=== PATIENT | female | born 1945 | race African-American/Black ===

== ENCOUNTER 2016-12-01 12:29 | Emergency (ER) | payer MEDICARE, OTHER ==
[~2016-12-01] VITALS: Ht 162.6 cm; Wt 111.1 kg
[~2016-12-01 12:29] MED LIST: ADVAIR 100-501 EACH INH; ASPIRIN EC81 MG ORAL; AUGMENTIN 875-1 EAC1 ORAL; BENAZEPRIL HCL10 MG ORAL; DITROPAN XL5 MG PO; METFORMIN HCL500 M1 ORAL; SYNTHROID75 MCG PO
--- NOTE | 2016-12-01 13:13 | Emergency Room Report ---
History of Present Illness General Chief Complaint: General Complaint Present Illness HPI 71-year-old female presents to the emergency department complaining of ring stuck on her right ring finger times one day. Patient denies erythema of reports some mild swelling at her knuckle which is making it difficult to remove her ring. Patient denies numbness skin color changes or severe pain. Patient denies past medical history denies trauma. Denies numbness tingling or loss of sensation or gross motor movements of the extremities, Denies CP, Palpitations, LOC, AMS, dizziness, Changes in Vision, Sensation, paresthesias, or a sudden severe headache. (Micheline Colon P.A.) Allergies: Coded Allergies: No Known Allergies (Unverified , 04/06/12) Patient History Past Medical History: see triage record Past Surgical History: none Pertinent Family History: none Now: No Immunizations: UTD Reviewed Nursing Documentation: PMH: Agreed, PSxH: Agreed (Micheline Colon P.Shivam) Nursing Documentation-PMH Hx Asthma: Yes - ADVAIR INHALER Hx COPD: Yes Hx Diabetes: Yes Hx Cancer: No Hx Gastrointestinal Problems: No Hx Neurological Problems: Yes (Micheline Colon P.A.) Review of Systems All Other Systems: negative except mentioned in HPI (Micheline Colon P.A.) Physical Exam Vital Signs Date Time Temp Pulse Resp B/P (MAP) Pulse Ox O2 Delivery O2 Flow Rate FiO2 12/01/16 12:47 97.7 77 18 137/67 95 Room Air Sp02 EP Interpretation: reviewed, normal General Appearance: no apparent distress, alert, GCS 15, non-toxic Head: normocephalic, atraumatic Eyes: bilateral eye normal inspection, bilateral eye PERRL ENT: hearing grossly normal, normal voice Neck: full range of motion Respiratory: lungs clear, normal breath sounds, speaking full sentences Cardiovascular #1: regular rate, rhythm, normal capillary refill Musculoskeletal: back normal, gait/station normal, normal range of motion, non- tender, swelling - PIP joint of the right ring finger. no erythema, normal color. Neurologic: alert, oriented x3, responsive, motor strength/tone normal, sensory intact, speech normal Psychiatric: judgement/insight normal, memory normal, mood/affect normal Skin: normal color, no rash, warm/dry, well hydrated (Micheline Colon) Procedures Additional Procedure Procedure Narrative Ring Removal: Verbal consent was obtained by pt. to use ring cutter to remove ring from the right 4th digit. single attempt to remove the right using a ring cutting tool was successful, pt. tolerate well there were no complications. (Micheline Colon) Medical Decision Making PA Attestation Dr. ring is my supervising Physician whom patient management has been discussed with. (Micheline Colon) Medicare Attestation The history of Katharina Islas has been reviewed and management options for her have been examined and discussed by Wolf Garcia. I have personally examined and interviewed the patient. (WOLF GARCIA M.D.) Diagnostic Impression: Primary Impression: Constrictive jewelry of finger Qualified Codes: S60.449A - External constriction of unspecified finger, initial encounter; W49.04XA - Ring or other jewelry causing external constriction, initial encounter ER Course 71-year-old female presents to the emergency department complaining of ring stuck on her right ring finger times one day. Patient denies erythema of reports some mild swelling at her knuckle which is making it difficult to remove her ring. Patient denies numbness skin color changes or severe pain. Patient denies past medical history denies trauma. Denies numbness tingling or loss of sensation or gross motor movements of the extremities, Denies CP, Palpitations, LOC, AMS, dizziness, Changes in Vision, Sensation, paresthesias, or a sudden severe headache. Ddx considered but are not limited to constriction/circulatory compromise, compartment syndrome, necrosis, cellulitis just to name a few Vital signs: are WNL, pt. is afebrile H&PE are most consistent with non complicated constricted jewelry on right ring finger not compromising circulation at this time. ORDERS: none required at this time, the diagnosis is clinical ED INTERVENTIONS: -Ice Pack was applied. Ring Removal: Verbal consent was obtained by pt. to use ring cutter to remove ring from the right 4th digit. single attempt to remove the right using a ring cutting tool was successful, pt. tolerate well there were no complications. pt. remains NVI DISCHARGE: At this time pt. is stable for d/c to home. Will provide printed patient care instructions, and any necessary prescriptions. Care plan and follow up instructions have been discussed with the patient prior to discharge. (Micheline Colon) Last Vital Signs Date Time Temp Pulse Resp B/P (MAP) Pulse Ox O2 Delivery O2 Flow Rate FiO2 12/01/16 12:47 97.7 77 18 137/67 95 Room Air (Micheline Colon) Disposition: HOME, SELF-CARE Condition: Stable Scripts Ibuprofen* (MOTRIN*) 400 Mg Tablet 400 MG ORAL THREE TIMES A DAY, #30 TAB 0 Refills Prov: Micheline Colon 12/01/16 Patient Instructions: Medical Screening Exam Additional Instructions: Take medications as directed. Follow up with a Primary Care Provider in 3-5 days, even if your symptoms have resolved. --Please review list of primary care clinics, if you do not already have a primary care provider Return sooner to ED if new symptoms occur, or current symptoms become worse. - Please note that this Emergency Department Report was dictated using [employer] youth supervisor technology software, occasionally this can lead to erroneous entry secondary to interpretation by the dictation equipment. Micheline Colon Dec 01, 2016 13:13 WOLF GARCIA M.D. Dec 02, 2016 15:45
[2016-12-01] MEDS ORDERED: IBUPROFEN400 MG ORAL (13:19)
[2016-12-01 13:58] VITALS: BP 137/67
== END 2016-12-01 14:26 | disposition home or self-care (01) ==
LOC: EMR 13:23
DX: S60.444A External constriction of right ring finger, initial encounter (principal); W49.04XA Ring or other jewelry causing external constriction, initial encounter; Y93.9 Activity, unspecified; Y99.9 Unspecified external cause status; J44.9 Chronic obstructive pulmonary disease, unspecified; E11.9 Type 2 diabetes mellitus without complications; Z86.69 Personal history of other diseases of the nervous system and sense organs
CPT/HCPCS: 99283

== ENCOUNTER 2018-09-04 05:42 | Inpatient (IN) | payer MEDICARE, BC ==
[2018-09-04] VITALS (13 sets, daily range): BP systolic 112–166; BP diastolic 70–91
[~2018-09-04] VITALS: Ht 162.6 cm; Wt 110.7 kg
[~2018-09-04 05:42] MED LIST changes: +IBUPROFEN400 MG ORAL; +MOBIC15 MG ORAL; +PRILOSEC OTC20 MG ORAL; +TOVIAZ8 MG PO
[2018-09-04] MEDS ORDERED: ceFAZolin 1gm IVPB IVPB ONE ×2 (06:00)
[2018-09-04] MEDS ORDERED: celeBREX 200mg Cap **SURGERY PATIENTS ONLY ORAL ONE (06:00)
[2018-09-04] MEDS ORDERED: oxyCONTIN 20mg tab ORAL ONE (06:00)
--- NOTE | 2018-09-04 07:00 | Pre-Procedure Note/Attestation ---
Pre-Procedure Note/Attestation Complete Prior to Procedure Planned Procedure: left Procedure Narrative: left total knee arthroplasty Indications for Procedure Pre-Operative Diagnosis: left knee arthritis Attestation I attest that I discussed the nature of the procedure; its benefits; risks and complications; and alternatives (and the risks and benefits of such alternatives ), prior to the procedure, with the patient (or the patient's legal customer relations representative). I attest that, if there was a reasonable possibility of needing a blood transfusion, the patient (or the patient's legal customer relations representative) was given the [facility] standardized written summary, pursuant to the Aidan Stanley Blood Safety Act ([place] Health and Safety Code # 1645, as amended). I attest that I re-evaluated the patient just prior to the surgery and that there has been no change in the patient's H&P, except as documented below: none Erickson Tabor MD Sep 04, 2018 07:00
[2018-09-04] MEDS ORDERED: Ropivacaine 5mg/ml Vial 30ml INJ ONE ×2 (07:11→07:52)
[2018-09-04] MEDS ORDERED: VITAMIN D400 INTLU ORAL (07:11)
[2018-09-04] MEDS ORDERED: NeoSporin Gu Irrig 1ml Amp IRRIG ONE ×3 (07:12→09:40)
[2018-09-04] MEDS ORDERED: NORCO 5-325 TA1 EACH ORAL (07:12)
[2018-09-04] MEDS ORDERED: TRULICITY1.5 MG/0.5 SQ (07:12)
[2018-09-04] MEDS ORDERED: Bacitracin 50000 Units Vial ONE (07:12)
[2018-09-04] MEDS ORDERED: HYDROmorphone 1mg/ml Carpuject SUBQ PRN (07:15)
[2018-09-04] MEDS ORDERED: Tranexamic Acid 1,000 MG in NS 55 ML IV ONE (07:15)
[2018-09-04] MEDS ORDERED: Milk of Magnesia 30ml Ud ORAL PRN (07:15)
[2018-09-04] MEDS ORDERED: Lidocaine 1% MPF 10mg/ml 5ml ONE (07:52)
[2018-09-04] MEDS ORDERED: Propofol 200mg/20ml IV ONE (07:55)
[2018-09-04] MEDS ORDERED: fentaNYL 100 mcg/2 mL IV ONE (07:58)
[2018-09-04] MEDS ORDERED: Midazolam 2mg/2ml Inj ONE (07:58)
[2018-09-04] MEDS ORDERED: Sterile Water Irrig 1000ml IRRIG ONE (08:30)
[2018-09-04] MEDS ORDERED: LR 1000ml ONE (08:30)
[2018-09-04] MEDS ORDERED: NS Irrig 2000ml IRRIG ONE ×3 (08:30→09:42)
[2018-09-04] MEDS ORDERED: Bacitracin 50000 Units Vial IRRIG ONE ×2 (09:00→09:40)
[2018-09-04] MEDS ORDERED: ePHEDrine 50mg/ml Inj ONE (09:33)
[2018-09-04] MEDS ORDERED: Sodium Chloride 10ml vial INJ ONE (09:34)
[2018-09-04] MEDS ORDERED: LR 1000ml 1,000 ML IVLG SCH (09:48)
--- NOTE | 2018-09-04 09:48 | Anethesia Preoperative Eval ---
Anesthesia Pre-op PMH/ROS General Date of Evaluation: Sep 04, 2018 Time of Evaluation: 08:05 Anesthesiologist: Rhodna ASA Score: ASA 3 Mallampati Score Class I : Soft palate, uvula, fauces, pillars visible Class II: Soft palate, uvula, fauces visible Class III: Soft palate, base of uvula visible Class IV: Only hard plate visible Mallampati Classification: Class II Surgeon: Sharona Diagnosis: L knee DJD Surgical Procedure: L knee TNA Anesthesia History: none Family History: no anesthesia problems Allergies: Coded Allergies: No Known Allergies (Unverified , 09/04/18) Medications: see eMAR Patient NPO?: Yes NPO Date: Sep 03, 2018 NPO Time: 2339 Past Medical History Cardiovascular: Reports: HTN; Denies: CAD, TN, valve dz, arrhythmia, other Pulmonary: Reports: asthma - mild occasional inhaler, LYNDSAY; Denies: COPD, other Gastrointestinal/Genitourinary: Reports: GERD; Denies: CRI, ESRD, other Neurologic/Psychiatric: Reports: other - chronic pain; Denies: dementia, CVA, depression/anxiety, TIA Endocrine: Reports: DM - stable on pills, hypothyroidism; Denies: steroids, other HEENT: Reports: cataract (L), cataract (R) - s/p Sx Hematology/Immune: Reports: anemia - mild; Denies: DVT, bleeding disorder, other Musculoskeletal/Integumentary: Reports: DJD; Denies: OA, RA, DDD, edema, other Other: obesity - morbid obesity PMH Narrative: as above PSxH Narrative: T&A, cholecystectomy, bilateral cataracts and corneal transplant, Knee arthroscopy Anesthesia Pre-op Phys. Exam Physician Exam Last Vital Signs Date Time Temp Pulse Resp B/P (MAP) Pulse Ox O2 Delivery O2 Flow Rate FiO2 09/04/18 07:12 Room Air 09/04/18 07:08 97.8 73 18 131/74 (93) 97 Constitutional: NAD Neurologic: CN 2-12 intact Cardiovascular: RRR, no M/R/G Respiratory: CTA Gastrointestinal: other - obesity Airway Exam Mallampati Score: Class II MO: full Neck: stiff ROM: limited Teeth: intact Dentures: no upper, no lower Anesthesia Pre-op A/P Labs see chart Studies Pre-op Studies: EKG - NSR Risk Assessment & Plan Assessment: ASA 3 Plan: SAB vs GA L femoral nerve block for postop pain control Status Change Before Surgery: No Pre-Antibiotics Drug: Ancef 2gr. Trans examic acid !gr surgeon equest Given Within 1 Hr of Incision: Yes Time Given: 09:20 Giovany Ellis MD Sep 04, 2018 09:48
[2018-09-04] MEDS ORDERED: DiphenhydrAMINE 50mg/ml Inj IVP PRN (10:00)
[2018-09-04] MEDS ORDERED: Hydromorphone 0.5mg/0.5ml inj IVP PRN (10:00)
--- NOTE | 2018-09-04 11:10 | Brief Operative Note ---
Immediate Post Operative Note Operative Note Chief Complaint: left knee pain Pre-op Diagnosis: left knee arthritis Procedure: left total knee arthroplasty Post-op Diagnosis: same as pre-op Findings: consistent w/pre-op dx studies Surgeon: md yelitza Broadcast Chief Engineer: jonelle berman Anesthesiologist: md fernando Anesthesia: general Specimen: yes Complications: none Condition: stable Fluids: ns Estimated Blood Loss: minimal Drains: none Implant(s) used?: Yes - Marquita Monroe Sep 04, 2018 11:10
--- NOTE | 2018-09-04 11:30 | Immediate Post-Op Evaluation ---
Immediate Post-Op Evalulation Immediate Post-Op Evalulation Procedure: L total knee arthroplasty Date of Evaluation: Sep 04, 2018 Time of Evaluation: 11:29 IV Fluids: 1500 Blood Products: none Estimated Blood Loss: 150 Urinary Output: 250 Blood Pressure Systolic: 144 Blood Pressure Diastolic: 76 Pulse Rate: 76 Respiratory Rate: 20 O2 Sat by Pulse Oximetry: 98 Temperature (Fahrenheit): 97.6 Pain Score (1-10): 1 Nausea: No Vomiting: No Complications none Patient Status: awake, patent, none Hydration Status: adequate Giovany Ellis MD Sep 04, 2018 11:30
--- NOTE | 2018-09-04 11:55 | NUR ---
TOLD ME ASPER TO REMOVE THE FC BEFORE TAKING THE PATIENT TO THE ROOM.
--- NOTE | 2018-09-04 12:45 | NUR ---
NURSE NOTES:RECEIVED FR.PACU BY DIANA S/P NAYA UNDER GENERAL/SPINAL ANESTHESIA.PATIENT AWAKE,A/OX4,WITH 2LITERS N/C,WTIH SENSATION ON BLE.CLAIMS "DAGMAR STARTING TO HAVE FEELINGS ON THE THIGH ALREADY"CAN WIGGLE TOES,SCD ON TO RIGHT LEG,SURGICAL DRSNG/KNEE IMMOBILIZER,ICE PACK TO LEFT KNEE.PLAN OF CARE DISCUSSED AND UNDERSTOOD,FAMILY AT BEDSIDE FOR SUPPORTIVE CARE.REPORT GIVEN BY PASTOR (DUST COLLECTOR ORE CRUSHING) Addendum: 09/04/18 at 1326 by DIMA WILSON RN NURSE NOTES: C/O POST OP PAIN 07/11,MEDICATED BY ANISH Lea
[2018-09-04] MEDS: Docusate 100mg cap ORAL SCH ×2 (13:00→17:45)
--- NOTE | 2018-09-04 13:16 | NUR ---
NURSE NOTES:SPOKE WITH RE:PATIENT H/O MRSA NARES,AND POSSIBILITY TO TRANSFER PATIENT TO 4TH FLOOR.MD DECLINED AND STATED TO KEEP PATIENT IN 3 EAST.CHARGE NURSE(ANISH Mathews)INFORMED.
[2018-09-04] MEDS ORDERED: D5 1/2NS w/KCl 20mEq 1,000 ML IV SCH (14:00)
--- NOTE | 2018-09-04 14:00 | NUR ---
PT EVALUATION NOTE Patient seen for initial evaluation, see complete evaluation for details. Patient presents with pain and limited mobility following L TKA. Patient will benefit from skilled inpatient PT intervention to address strength, balance, safety and functional mobility. Recommend discharge to ARU vs SNF for further rehab once medically cleared by MD. DME needs to be determined based on discharge disposition and patient progress. Addendum: 09/04/18 at 1508 by JESSICA NIEVES PT Amended: Links added.
--- NOTE | 2018-09-04 14:00 | NUR ---
NURSE NOTES:ACTIVITY WITH PT,PATIENT STAND AT THE SIDE OF BED,AND HAD CPM STARTED,PATIENT STILL IN A LOT OF PAIN,MEDICATED BY FOREIGN CONTRERAS. WITH ADDIS,WILL MONITOR.
[2018-09-04] MEDS: HYDROcodone/Acetamin 5/325 tab ORAL PRN (14:08)
--- NOTE | 2018-09-04 14:52 | NUR ---
NURSE NOTES:PATIENT TOLERATED FOR JUST 30-45 MINUTES OF CPM.ROLLED TOWEL PLACED UNDER CALF,ICE PACK ON.WILL CONTINUE TO MONITOR.
--- NOTE | 2018-09-04 15:59 | NUR ---
NURSE NOTES:DR. FRIAS NOTIFIED RE:PATIENT NEEDS STRONGER PAIN MED.ORDERS CARRIED OUT.
--- NOTE | 2018-09-04 16:13 | Diagnostic Imaging Report ---
Indications: Postoperative Technique: Two views of the knee Comparison: None Findings: Two postoperative views of the left knee demonstrate total knee arthroplasty, good anatomic alignment of the prosthesis. There is postsurgical soft tissue air. Overlying skin kalpana. Impression: Postoperative left knee, no unusual features.
[2018-09-04] MEDS: NovoLOG Insulin Flexpen SUBQ SCH ×2 (17:30→20:15)
--- NOTE | 2018-09-04 17:30 | Operative Note - Dictated ---
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 PROCEDURE: Left total knee arthroplasty using Omid Triathlon System, size 4 femur, size 4 tibia, 31 mm ultra cross-link all-poly patella and 9 mm ultra cross-link polyethylene insert, all cemented. SURGEON: Erickson Tabor M.D. CLINICAL REVIEW SPECIALIST: Marquita Ware PA-C. ANESTHESIOLOGIST: Giovany Ellis M.D. ANESTHESIA: Spinal anesthesia combined with LMA anesthesia in block. ESTIMATED BLOOD LOSS: Less than 20 mL. COMPLICATIONS: None. TOURNIQUET TIME: 70 minutes. BRIEF HISTORY: The patient is a very pleasant 73-year-old female who has been dealing with severe left knee pain and valgus deformity. She also had a lot of wear medially. After full discussion of risks and benefits of surgery and after she failed nonoperative treatment, she opted for surgical treatment as described above. OPERATIVE PROCEDURE: The patient was brought to the operating table and was placed supine. All pressure points were well padded. Spinal anesthesia was induced and the left knee was prepped and draped in usual sterile fashion. The block was performed by anesthesiologist and the patient was given an LMA. Tranexamic acid and preop antibiotics were given and a time-out was performed. The left leg was prepped and draped in usual sterile fashion. The left leg was exsanguinated. Tourniquet was inflated to 275 mmHg. Standard anterior portion of the knee was undertaken and incision was taken through subcutaneous tissue. Medial parapatellar arthrotomy was performed and the patella was everted. Deep fibers of the MCL were resected. The medial and lateral meniscus as well as ACL and PCL were resected. At this point, intramedullary access into the femur was obtained using drill hole. Subsequently, intramedullary guide was placed in and the distal femoral guide was used in 5 degrees of valgus to do a distal femoral cut. Once this was completed, the measuring device was applied to the femur and size 4 appeared to be the right size. The transcondylar axis of the femur was identified and size 4 cutting guide was placed in 3 degrees of external rotation from the transepicondylar axis. Anterior, posterior, and chamfer cuts were performed without any complication. At this point, size 4 femur was applied and there was excellent fit. The femur was slightly lateralized and PEG holes were drilled. At this point, care was given to the tibial side. The tibia was palpated. This was marked in anatomical axis using anterior crest of the tibia was drawn out. At this point, the appropriate retractors posteriorly, medially, and laterally were placed and the knee was hyperflexed. The remnants of medial and lateral meniscus were removed. The extramedullary guide was placed in the anatomical axis with recreating the slope. It was set at 2 mm taken off from the most involved side, which was the medial side. At this point, once the axis and depth of the cut were confirmed, while protecting the patellar tendon, the tibial cut was performed without any complications. At this point, flexion-extension gap was checked and appeared to be excellent. Subsequently, the sizing of the tibia was performed and size 4 appeared to be the right size, so a size 4 tibial plate was placed in about 3 degrees of external rotation and was drilled and punched without any complications. At this point, the trial tibia, trial femur, and 9 mm poly were all inserted and the knee was placed through range of motion. There was full extension, full flexion, and excellent stability at 0, 30 degrees, 45 degrees, and 90 degrees of flexion. At this point, care was given to the patella. The patella was everted. It measured 24 mm. A freehand patellar cut was performed and the remaining patella was 14 mm. At this point, the measurements were made and 31 mm patella was then appeared to be the right size. The PEG holes were drilled and the trial patellar component was applied. At this point, the patellofemoral tracking was checked. There was a slight lateral tracking of the patella. A limited lateral release was performed, which provided excellent patellofemoral tracking. At this point, wounds were all thoroughly irrigated using copious amount of fluid. The trial components were removed and the knee was thoroughly irrigated with Simpulse irrigation. The cement was mixed and the tibial component, femoral component, and patellar components were all cemented without any complication. All excess cement was removed. Subsequently, a 9 mm poly insert was locked in without any complication. The range of motion and stability were checked again and there was excellent range of motion and stability as described previously. At this point, the tourniquet was deflated. All bleeders were stopped. The extensor mechanism was closed using #1 Vicryl suture. Subcutaneous tissue was closed using 2-0 Vicryl suture. Skin was closed using 3-0 Monocryl suture and Dermabond was applied. The patient tolerated the procedure well without any complication, was taken recovery room in stable condition. All lap counts and instrument counts were correct. Erickson Tabor M.D. DR: HOANG JOB#: [id number] CC:
[2018-09-04] MEDS: ceFAZolin sod 1 GM in D5W 55 ML IV SCH (17:45)
[2018-09-04] MEDS: 1/2NS w/KCl 20mEq 1000ml 1,000 ML IV SCH (17:45)
[2018-09-04] MEDS ORDERED: Aspirin Baby 81mg ORAL SCH (18:00)
[2018-09-04] MEDS: Wixela 100/50 Inhaler - 60 dose INH SCH (19:12)
--- NOTE | 2018-09-04 19:35 | NUR ---
HAND-OFF: Report given to EVIN RN. WITH BEDSIDE ROUNDS,PATIENT C/O PAIN AND NAUSEA,TO BE MEDICATED BY NIGHT RN.
--- NOTE | 2018-09-04 19:36 | NUR ---
NURSE NOTES: Received report & pt from DIANE Ambriz. Pt lying in bed, a&ox4, on O2 via NC @ 2LPM. No s/s of acute distress & c/o 09/10 pain & n/v. Will medicate with PRN meds. Surgical dressing C/D/I.IV Addendum: 09/04/18 at 2155 by Chery Ortiz RN NURSE NOTES: Received report & pt from DIANE Ambriz. Pt lying in bed, a&ox4, on O2 via NC @ 2LPM. No s/s of acute distress & c/o 09/10 pain & n/v. Will medicate with PRN meds. Surgical dressing C/D/I. IV site intact with IVF running as ordered. Bed in lowest position, call light within reach. Will continue to monitor.
--- NOTE | 2018-09-04 19:51 | NUR ---
CASE MANAGEMENT: INITIAL REVIEW 09/04/2018 73 YO F PRESENTED TO HOSPITAL FOR SURGERY CC: LEFT KNEE PRIMARY OA PMHx: COPD. DM. OA. SI:LEFT KNEE ARTHRITIS. T 97.8 HR 73 RR 18 B/P 131/74 SATS 97% ON RA NO TODAY IS:OR MEDS PATIENT ADMITTED TO MED/SURG 09/04/2018 @ 0712 DCP: PATIENT TO BE DISCHARGED TO HOME ONCE MEDICALLY CLEARED. PLAN OF CARE: POST OP CARE PLAN OF CARE: Pre-op Diagnosis: left knee arthritis Procedure: left total knee arthroplasty Post-op Diagnosis: same as pre-op
--- NOTE | 2018-09-04 21:22 | History & Physical ---
History of Present Illness General Date patient seen: Sep 04, 2018 Time patient seen: 21:17 Reason for Hospitalization: joint replacement Present Illness HPI patient was admmited tounder go total knee arthroplasty patient denies any ches tpain or shorntess of breath no PND no orthopnea Allergies: Coded Allergies: No Known Allergies (Unverified , 09/04/18) Medication History Scheduled Aspirin Ec* (Aspirin Ec*), 81 MG ORAL DAILY, (Reported) Benazepril Hcl* (Benazepril Hcl*), 5 MG ORAL DAILY, (Reported) Dulaglutide (Trulicity), 1.5 MG SQ ONCE A WEEK, (Reported) Fesoterodine Fumarate (Toviaz), 8 MG PO DAILY, (Reported) Fluticasone/Salmeterol (Advair 100-50 Diskus), 1 PUFF INH BID, (Reported) Levothyroxine Sodium* (Synthroid*), 88 MCG PO DAILY, (Reported) Meloxicam* (Mobic*), 15 MG ORAL DAILY, (Reported) Metformin Hcl* (Metformin Hcl*), 500 MG ORAL TWICE A DAY, (Reported) Omeprazole Magnesium (Prilosec Otc), 20 MG ORAL DAILY, (Reported) Vitamin D (Vitamin D3), 2,000 UNITS ORAL DAILY, (Reported) Scheduled PRN Hydrocodone Bit/Acetaminophen 5-325* (Carrie 5-325*), 1 TAB ORAL Q6H PRN for For Pain, (Reported) Discontinued Medications Amoxicillin/Potassium Clav 875-125* (Augmentin 875-125 Tablet*), 1 TAB ORAL TWICE A DAY Discontinued Reason: Therapy completed Ibuprofen* (Motrin*), 400 MG ORAL THREE TIMES A DAY Discontinued Reason: MD discontinued med Oxybutynin Chloride (Ditropan Xl), 5 PO BID, (Reported) Discontinued Reason: MD discontinued med Patient History Healthcare decision maker vanessa honeycutt - daughter Resuscitation status Full Code Advanced Directive on File Past Medical/Surgical History Past Medical/Surgical History: (1) Hypertension (2) Morbidly obese (3) OA (osteoarthritis) of knee (4) Arthritis of left knee (5) Diabetes (6) diab (7) Hyperlipemia (8) GERD (gastroesophageal reflux disease) Review of Systems Review of Symptoms General ROS: no weight loss or fever Ophthalmic ROS: no visual changes or eye irritation ENT ROS: no nasal congestion, hearing loss, dizziness Allergy and Immunology ROS: no allergic symptoms or urticaria Hematological and Lymphatic ROS: no swollen glands, unusual bleeding or bruising Endocrine ROS: no polyuria, polydipsia, weight changes, temperature intolerance Respiratory ROS: no cough, shortness of breath, or wheezing Cardiovascular ROS: no chest pain Gastrointestinal ROS: denies abdominal pain, bright red blood in stool. Musculoskeletal ROS: arthralgias Neurological ROS: no TIA or stroke symptoms Dermatological ROS: no new or changing skin lesions, rashes or pruritis Physical Exam Physical Exam General appearance: NAD Eyes: conjunctivae/. PERRL, EOM's intact. Neck: no JVD Lungs: clear to auscultation bilaterally Heart: regular rate and rhythm, S1, S2 normal, Abdomen: soft, non-tender. Bowel sounds normal. No masses, Extremities:no cyanosis Neurologic: Grossly normal Last 24 Hour Vital Signs Date Time Temp Pulse Resp B/P (MAP) Pulse Ox O2 Delivery O2 Flow Rate FiO2 09/04/18 20:00 97.5 83 15 123/76 (92) 96 09/04/18 19:15 78 18 98 Nasal Cannula 3.0 32 09/04/18 19:12 78 18 98 Nasal Cannula 3.0 32 09/04/18 19:12 98 Nasal Cannula 3.0 32 09/04/18 16:07 97.5 84 18 166/91 (116) 98 09/04/18 13:30 97.5 78 20 116/82 (93) 98 09/04/18 13:00 97.5 74 20 112/77 (89) 98 09/04/18 12:45 Nasal Cannula 2.0 09/04/18 12:25 97.9 68 16 139/71 100 Nasal Cannula 3 09/04/18 12:10 69 21 141/70 100 Nasal Cannula 3 09/04/18 11:55 75 18 156/76 100 Nasal Cannula 3 09/04/18 11:45 76 13 147/75 100 Simple Mask 6 09/04/18 11:35 76 13 147/75 100 Simple Mask 6 09/04/18 11:30 74 14 153/73 100 Simple Mask 6 09/04/18 11:30 76 20 98 09/04/18 11:25 97.5 79 20 148/81 100 Simple Mask 6 09/04/18 07:12 Room Air 09/04/18 07:08 97.8 73 18 131/74 (93) 97 Height (Feet): 5 Height (Inches): 4.00 Weight (Pounds): 246 Medications Current Medications Medications (Trade) Dose Ordered Sig/Aden Route PRN Reason Start Time Stop Time Status Last Admin Dose Admin Acetaminophen (Tylenol) 650 mg Q4H PRN ORAL temp>100.2 or headache 09/04/18 07:15 10/04/18 07:14 Acetaminophen/ Hydrocodone Bitart (Carrie 5/325) 1 tab Q4H PRN ORAL pain scores 4-10 09/04/18 07:15 09/11/18 07:14 09/04/18 14:08 Benazepril HCl (Lotensin) 10 mg DAILY ORAL 09/05/18 09:00 10/05/18 08:59 Cefazolin Sodium 1 gm/Dextrose 55 ml @ 110 mls/hr Q8H IV 09/04/18 18:00 09/05/18 02:29 09/04/18 17:45 Celecoxib (CeleBREX) 200 mg DAILY ORAL 09/05/18 09:00 10/05/18 08:59 Dextrose (Dextrose 50%) 25 ml Q30M PRN IV Hypoglycemia 09/04/18 16:15 10/04/18 16:14 Dextrose (Dextrose 50%) 50 ml Q30M PRN IV Hypoglycemia 09/04/18 16:15 10/04/18 16:14 Docusate Sodium (Colace) 100 mg THREE TIMES A DAY ORAL 09/04/18 13:00 10/04/18 12:59 Ferrous Sulfate (Feosol) 325 mg THREE TIMES A DAY ORAL 09/04/18 13:00 10/04/18 12:59 Hydromorphone HCl (Dilaudid) 1 mg Q4H PRN SUBQ Mild Pain (Pain Scale 1-3) 09/04/18 07:15 09/11/18 07:14 09/04/18 13:11 Hydromorphone HCl (Dilaudid) 2 mg Q2H PRN SUBQ Severe Breakthru Pain (>7) 09/04/18 16:00 09/11/18 15:59 09/04/18 19:59 Insulin Aspart (NovoLOG) BEFORE MEALS AND HS SUBQ 09/04/18 17:30 10/04/18 17:29 09/04/18 20:15 Levothyroxine Sodium (Synthroid) 88 mcg DAILY@0630 ORAL 09/05/18 06:30 10/05/18 06:29 Magnesium Hydroxide (Mom) 30 ml DAILYPRN PRN ORAL Constipation 09/04/18 07:15 10/04/18 07:14 Metformin HCl (Glucophage) 500 mg TIAC ORAL 09/05/18 06:30 10/05/18 06:29 Non-Formulary Medication (Non-Formulary Med) 1 ea DAILY ORAL 09/05/18 09:00 10/05/18 08:59 UNV Ondansetron HCl (Zofran) 4 mg Q6H PRN IVP Nausea & Vomiting 09/04/18 07:15 10/04/18 07:14 09/04/18 19:59 Pantoprazole (Protonix) 40 mg DAILY ORAL 09/05/18 09:00 10/05/18 08:59 Salmeterol Xinafoate/ Fluticasone (Advair 100/50 Diskus) 1 puffs TWICE A DAY INH 09/04/18 18:00 10/04/18 17:59 09/04/18 19:12 Sodium 1,000 ml @ 75 mls/hr [id number] IV 09/04/18 17:00 09/05/18 18:00 09/04/18 17:45 Assessment/Plan Status Narrative s/p total knee arthroplasty mioninmal blood loss morbid obesity at risk of LYNDSAY hyeprtension diabetes perioperative expected witht loss Assessment/Plan: PT OT DVT PROPHJYLAXIS paincontrol monitor aguilar harrington thick neck placed on continuous pulse ox and keep on 2 liter o2 if desat will palce on cpap or bipap at night [facility] Hospital declaration INPATIENT level of care is warranted for this patient because patient is a 89 year old with who presents with suspicion of . I have a high level of concern because . Patient is at high risk for . Plan of care/treatment include . Patient care is expected to be greater than 2 midnights. OBSERVATION level of care is warranted for this patient. Patient is a 89 year old with who presents with . Patient will be admitted for 1 midnight, but if additional night(s) is/are necessary, patient will be converted to inpatient status for the entire hospitalization Disposition: Once the patient is stable to leave the hospital, I anticipate the patient will likely be discharged to the following environment: Estimated discharge date: I spent 70 minutes on this patient's case, and minutes was dedicated to counseling and/or care coordination. MIPS (Merit-based Incentive Payment System) Applicable CPT: 17161, 27098 CHECK ALL THAT ARE MET: Measure #5 (CHF): All ages. Prescribe RICO/ARB upon discharge for patients with left ventricular systolic dysfunction. If not, the reason is clearly documented in the medical chart. Measure #8 (CHF): All ages. Prescribe a beta mikal upon discharge for patients with left ventricular systolic dysfunction. If not, the reason is clearly documented in the medical chart. Measure #47 Advance care plan or surrogate decision maker documented in the medical record. Measure #130 The provider has documented, updated, or reviewed the patients current medication list and has documented it in the patients note. Measure #374 (All): Send report to referring provider. Measure #407(Sepsis due to MSSA bacteremia): Age 18+ Patient treated with a beta-lactam antibiotic (Nafcillin, Oxacillin or Cefazolin) as definitive therapy. MEDICAL COMPLEXITY High complexity medical decision making (need 2/3 categories) Problem - need 4 points Acute/new problem with new plan for workup (4 points, 1 max) Acute/new problem without additional workup (3 points, 1 max) Unstable chronic problem actively being managed (2 point each, 2 max) Stable chronic problem actively being managed (1 point each, 2 max) Self-limited/transient process (constipation, muscle ache, etc) (1 point each , 2 max) Data - need 4 points Reviewed labs/imaging studies (1 points, 2 max) Independent review of imaging (EKG, xrays, etc) (2 points, 2 max) Discussed case with consult/other MD/RN (2 points, 2 max) High Risk - qualify if have one of the following: Severe exacerbation of acute problem, acute mental status change, IV narcotics , monitoring drug levels (vancomycin, INR, tacrolimus etc) Kenroy Javed MD Sep 04, 2018 21:22
[2018-09-05] VITALS: BP 126/80
[2018-09-05] MEDS: ceFAZolin sod 1 GM in D5W 55 ML IV SCH (01:59)
--- NOTE | 2018-09-05 03:00 | NUR ---
NURSE NOTES: Pt hasn't voided for more than 8hours already. Did bladder scan & it showed 180ml PVR. Bladded palpated, soft & non distended. Encouraged pt to drink more fluids. Called Dr. Javed regarding above & also mentioned that pt takes Toviaz for overactive bladder. Asked MD if he wanted to do in & out pt MD stats "No". No new orders were given. Charge Nurse Ronald also made aware.
[2018-09-05] MEDS: HYDROcodone/Acetamin 5/325 tab ORAL PRN ×3 (03:46→18:25)
[2018-09-05 04:00] VITALS: BP 127/67
--- NOTE | 2018-09-05 05:20 | NUR ---
NURSE NOTES: Assisted pt to BSC. Pt able to void 300ml of urine. No pain while voiding. Will continue to monitor.
[2018-09-05] MEDS: metFORMIN 500mg tab ORAL SCH ×3 (05:39→16:57)
[2018-09-05] MEDS: 1/2NS w/KCl 20mEq 1000ml 1,000 ML IV SCH (05:46)
[2018-09-05] MEDS: NovoLOG Insulin Flexpen SUBQ SCH ×4 (05:47→22:10)
[2018-09-05 06:04] LABS: BASOPHILS % (AUTO) 0.3 % (0.0-2.0); EOSINOPHILS % (AUTO) 2.7 % (0.0-3.0); HEMATOCRIT 34.9 % (37.0-47.0); LYMPHOCYTES % (AUTO) 18.4 % (20.0-45.0); MEAN CORPUSCULAR VOLUME 91 FL (80-99); MONOCYTES % (AUTO) 11.2 % (1.0-10.0); NEUTROPHILS % (AUTO) 67.3 % (45.0-75.0); PLATELET COUNT 220 K/UL (150-450); RED BLOOD COUNT 3.84 M/UL (4.20-5.40); WHITE BLOOD COUNT 6.6 K/UL (4.8-10.8)
[2018-09-05 06:58] LABS: ANION GAP 10 mmol/L (5-15); BLOOD UREA NITROGEN 20 mg/dL (7-18); CALCIUM 8.7 MG/DL (8.5-10.1); CARBON DIOXIDE 25 MMOL/L (21-32); CHLORIDE 104 MMOL/L (98-107); CREATININE 1.4 MG/DL (0.55-1.30); POTASSIUM 5.1 MMOL/L (3.5-5.1); SODIUM 139 MMOL/L (136-145)
--- NOTE | 2018-09-05 07:37 | NUR ---
HAND-OFF: Report given to Charge nurse. Pt in stable condition. Rounds done.
[2018-09-05 08:00] VITALS: BP 123/92
--- NOTE | 2018-09-05 08:14 | Orthopedic Progress Note ---
Orthopedic - Progress Note Subjective Symptoms: c/o post-op knee pain - needed pain med adjustment over night. wasn' t able to do much with PT yesterday Objective Laboratory Tests Test 09/05/18 04:45 White Blood Count 6.6 K/UL (4.8-10.8) Red Blood Count 3.84 M/UL (4.20-5.40) L Hemoglobin 11.0 G/DL (12.0-16.0) L Hematocrit 34.9 % (37.0-47.0) L Mean Corpuscular Volume 91 FL (80-99) Mean Corpuscular Hemoglobin 28.6 PG (27.0-31.0) Mean Corpuscular Hemoglobin Concent 31.5 G/DL (32.0-36.0) L Red Cell Distribution Width 13.0 % (11.6-14.8) Platelet Count 220 K/UL (150-450) Mean Platelet Volume 5.9 FL (6.5-10.1) L Neutrophils (%) (Auto) 67.3 % (45.0-75.0) Lymphocytes (%) (Auto) 18.4 % (20.0-45.0) L Monocytes (%) (Auto) 11.2 % (1.0-10.0) H Eosinophils (%) (Auto) 2.7 % (0.0-3.0) Basophils (%) (Auto) 0.3 % (0.0-2.0) Sodium Level 139 MMOL/L (136-145) Potassium Level 5.1 MMOL/L (3.5-5.1) Chloride Level 104 MMOL/L (98-107) Carbon Dioxide Level 25 MMOL/L (21-32) Anion Gap 10 mmol/L (5-15) Blood Urea Nitrogen 20 mg/dL (7-18) H Creatinine 1.4 MG/DL (0.55-1.30) H Estimat Glomerular Filtration Rate mL/min (>60) Glucose Level 132 MG/DL (74-106) H Calcium Level 8.7 MG/DL (8.5-10.1) Last 24 Hour Vital Signs Date Time Temp Pulse Resp B/P (MAP) Pulse Ox O2 Delivery O2 Flow Rate FiO2 09/05/18 04:00 97.7 88 17 127/67 (87) 97 09/05/18 00:00 97.7 89 16 126/80 (95) 97 09/04/18 21:00 Nasal Cannula 2.0 09/04/18 20:00 97.5 83 15 123/76 (92) 96 09/04/18 19:15 78 18 98 Nasal Cannula 3.0 32 09/04/18 19:12 78 18 98 Nasal Cannula 3.0 32 09/04/18 19:12 98 Nasal Cannula 3.0 32 09/04/18 16:07 97.5 84 18 166/91 (116) 98 09/04/18 13:30 97.5 78 20 116/82 (93) 98 09/04/18 13:00 97.5 74 20 112/77 (89) 98 09/04/18 12:45 Nasal Cannula 2.0 09/04/18 12:25 97.9 68 16 139/71 100 Nasal Cannula 3 09/04/18 12:10 69 21 141/70 100 Nasal Cannula 3 09/04/18 11:55 75 18 156/76 100 Nasal Cannula 3 09/04/18 11:45 76 13 147/75 100 Simple Mask 6 09/04/18 11:35 76 13 147/75 100 Simple Mask 6 09/04/18 11:30 74 14 153/73 100 Simple Mask 6 09/04/18 11:30 76 20 98 09/04/18 11:25 97.5 79 20 148/81 100 Simple Mask 6 Intake and Output 09/04/18 09/05/18 19:00 07:00 Intake Total 2130 ml 825 ml Output Total 500 ml Balance 1630 ml 825 ml Intake Oral 300 ml IV Total 1830 ml 825 ml Output Urine Total 350 ml Estimated Blood Loss 150 ml # Voids 1 1 Laboratory Tests Test 09/05/18 04:45 White Blood Count 6.6 K/UL (4.8-10.8) Red Blood Count 3.84 M/UL (4.20-5.40) L Hemoglobin 11.0 G/DL (12.0-16.0) L Hematocrit 34.9 % (37.0-47.0) L Mean Corpuscular Volume 91 FL (80-99) Mean Corpuscular Hemoglobin 28.6 PG (27.0-31.0) Mean Corpuscular Hemoglobin Concent 31.5 G/DL (32.0-36.0) L Red Cell Distribution Width 13.0 % (11.6-14.8) Platelet Count 220 K/UL (150-450) Mean Platelet Volume 5.9 FL (6.5-10.1) L Neutrophils (%) (Auto) 67.3 % (45.0-75.0) Lymphocytes (%) (Auto) 18.4 % (20.0-45.0) L Monocytes (%) (Auto) 11.2 % (1.0-10.0) H Eosinophils (%) (Auto) 2.7 % (0.0-3.0) Basophils (%) (Auto) 0.3 % (0.0-2.0) Sodium Level 139 MMOL/L (136-145) Potassium Level 5.1 MMOL/L (3.5-5.1) Chloride Level 104 MMOL/L (98-107) Carbon Dioxide Level 25 MMOL/L (21-32) Anion Gap 10 mmol/L (5-15) Blood Urea Nitrogen 20 mg/dL (7-18) H Creatinine 1.4 MG/DL (0.55-1.30) H Estimat Glomerular Filtration Rate mL/min (>60) Glucose Level 132 MG/DL (74-106) H Calcium Level 8.7 MG/DL (8.5-10.1) Wound: clean, dry, intact Drains: none Neuro Status: normal Vascular Status: normal Additional Comments Xray reviewed and alignment excellent Assessment Post-op Diagnosis POD 1 Procedure Performed left total knee arthroplasty Plan Plan: PT, pain management, discharge plan - to rehab, other - d/c IVFs- eating well. D/c bernabe. DVT ppx with ASA and SCDs Marquita Ware Sep 05, 2018 08:14
[2018-09-05] MEDS: Docusate 100mg cap ORAL SCH ×3 (08:34→18:24)
[2018-09-05] MEDS: Benazepril 10mg tab ORAL SCH (08:34)
[2018-09-05] MEDS: celeBREX 200mg Cap **SURGERY PATIENTS ONLY ORAL SCH (08:41)
[2018-09-05] MEDS: Wixela 100/50 Inhaler - 60 dose INH SCH ×2 (09:37→19:04)
--- NOTE | 2018-09-05 11:59 | NUR ---
NURSE NOTES: Pt able to verbalize known needs, participated in PT . Educated on pain relief . Pt currently states pain at 7 encouraged to take mediation, while pain is mild. Has Dilaudid for mild pain 1-3 . Current plan of care will be followed.
[2018-09-05 12:00] VITALS: BP 98/67
--- NOTE | 2018-09-05 12:46 | NUR ---
NURSE NOTES: Pt own medication not delivered yet
--- NOTE | 2018-09-05 13:17 | NUR ---
CASE MANAGEMENT:REVIEW 09/05/18 SI: POD #1 S/P LT TOTAL KNEE ARTHROPLASTY 97.8 96 16 98/67 98% ON 3L/NC BUN+20 CR+1.4 IS: IVF@75/HR PROTONIX PO QD LOTENSIN PO QD SYNTHROID PO QD METFORMIN PO TID ADVAIR INH BID IV DILAUDID SQ Q2HRS PRN : MED/SURG STATUS 3 EAST
--- NOTE | 2018-09-05 13:30 | NUR ---
PT NOTE Patient ambulated to the bathroom with nursing assistance, just returning to bed. Patient declining additional mobility and exercises at this time due to fatigue. Patient also declining to be placed in CPM, states she will notify nursing when she would like to be placed in the CPM. Carina CONTRERAS notified.
[2018-09-05] MEDS: TOVIAZ 8 MG ORAL SCH (13:57)
--- NOTE | 2018-09-05 15:14 | NUR ---
NURSE NOTES: Pt verbalized pain to ankle pain medication given, Inquired why she was experiencing pain to ankle and not knee. Encouraged to relax her limb, and not to tense leg. Current plan of care will be followed
[2018-09-05 16:00] VITALS: BP 104/68
--- NOTE | 2018-09-05 16:10 | 48 Hour Post Anesthesia Eval ---
Post Anesthesia Evaluation Procedure: L total knee arthroplasty Date of Evaluation: Sep 05, 2018 Time of Evaluation: 16:08 Blood Pressure Systolic: 98 0: 67 Pulse Rate: 96 Respiratory Rate: 16 Temperature (Fahrenheit): 97.8 O2 Sat by Pulse Oximetry: 98 Airway: patent Nausea: No Vomiting: No Pain Intensity: 3 Cardiopulmonary Status: Stable Follow-up Care/Observations: 0 Post-Anesthesia Complications: 0 Checo Deleon MD Sep 05, 2018 16:10
--- NOTE | 2018-09-05 19:30 | NUR ---
NURSE NOTES: Received report from DIANE Viera and rounds made. Received pt laying in bed, AOX4, denies pain at this time, c/o nausea no emesis seen, no IV access, will re-insert new IV. Surgical dressing C/D/I. Pt on continuous pulse ox per MD order, saturation 98% on 2 liters oxygen, no distress noted. Safety measures maintained. Will continue to monitor.
[2018-09-05 20:00] VITALS: BP 112/72
--- NOTE | 2018-09-05 20:05 | NUR ---
NURSE NOTES: Pt refused second round of physical therapy as well as to be placed in knee immobilizer. Up to restroom with walker and assistance. Pt called publicity writer to room to inform her that she accidently pulled IV out and has complaints of nausea x one vomitus. Family member threw away vomitus unable to asses
--- NOTE | 2018-09-05 20:30 | NUR ---
NURSE NOTES: New IV inserted L FA #20 patent and intact. Zofran 4mg IVP given for nausea. Will continue to monitor.
--- NOTE | 2018-09-05 20:56 | General Progress Note ---
Assessment/Plan Assessment/Plan: s/p total knee arthoplasty perioperative blood loss anemia obesity at risk o f LYNDSAY oxygen pulse continuous will monitor dvt rpophyalxis to go to [facility] Subjective Date patient seen: Sep 05, 2018 Time patient seen: 20:53 Constitutional: Reports: no symptoms HEENT: Reports: no symptoms Cardiovascular: Reports: no symptoms Allergies: Coded Allergies: No Known Allergies (Unverified , 09/04/18) Subjective doing ok no fever no chills no chest pauin Objective Last 24 Hour Vital Signs Date Time Temp Pulse Resp B/P (MAP) Pulse Ox O2 Delivery O2 Flow Rate FiO2 09/05/18 19:04 118 18 95 Nasal Cannula 3.0 32 09/05/18 19:04 118 18 95 Nasal Cannula 3.0 32 09/05/18 19:04 95 Room Air 3.0 32 09/05/18 16:10 96 16 98 09/05/18 16:00 98.1 98 104/68 (80) 09/05/18 12:00 97.8 96 16 98/67 (77) 09/05/18 09:38 97 18 98 Nasal Cannula 3.0 32 09/05/18 09:37 97 18 97 Nasal Cannula 3.0 32 09/05/18 09:37 97 Nasal Cannula 3.0 32 09/05/18 09:00 Nasal Cannula 2.0 09/05/18 08:34 123/92 09/05/18 08:00 97.9 97 16 123/92 (102) 98 09/05/18 04:00 97.7 88 17 127/67 (87) 97 09/05/18 00:00 97.7 89 16 126/80 (95) 97 09/04/18 21:00 Nasal Cannula 2.0 Intake and Output 09/04/18 09/05/18 18:59 06:59 Intake Total 2130 ml 825 ml Output Total 500 ml Balance 1630 ml 825 ml Intake Oral 300 ml IV Total 1830 ml 825 ml Output Urine Total 350 ml Estimated Blood Loss 150 ml # Voids 1 1 Laboratory Tests 09/05/18 04:45: White Blood Count 6.6, Red Blood Count 3.84L, Hemoglobin 11.0L, Hematocrit 34.9L , Mean Corpuscular Volume 91, Mean Corpuscular Hemoglobin 28.6, Mean Corpuscular Hemoglobin Concent 31.5L, Red Cell Distribution Width 13.0, Platelet Count 220, Mean Platelet Volume 5.9L, Neutrophils (%) (Auto) 67.3, Lymphocytes (%) (Auto) 18.4L, Monocytes (%) (Auto) 11.2H, Eosinophils (%) (Auto ) 2.7, Basophils (%) (Auto) 0.3, Sodium Level 139, Potassium Level 5.1, Chloride Level 104, Carbon Dioxide Level 25, Anion Gap 10, Blood Urea Nitrogen 20H, Creatinine 1.4H, Estimat Glomerular Filtration Rate , Glucose Level 132H, Calcium Level 8.7 Height (Feet): 5 Height (Inches): 4.00 Weight (Pounds): 244 General Appearance: WD/WN Neck: non-tender Cardiovascular: normal rate, regular rhythm, no JVD Respiratory/Chest: lungs clear Abdomen: non tender Extremities: other - able to dorsi flex both ankles Kenroy Javed MD Sep 05, 2018 20:56
[2018-09-06] VITALS: BP 107/59
[2018-09-06 04:00] VITALS: BP 127/63
--- NOTE | 2018-09-06 05:35 | NUR ---
NURSE NOTES: POD #2 dressing change done to left knee per MD order. Applied 4x4 and tegaderm, CDI.
[2018-09-06] MEDS: metFORMIN 500mg tab ORAL SCH ×3 (06:03→16:48)
[2018-09-06] MEDS: NovoLOG Insulin Flexpen SUBQ SCH ×4 (06:06→21:36)
[2018-09-06 06:39] LABS: BASOPHILS % (AUTO) 0.5 % (0.0-2.0); HEMATOCRIT 31.1 % (37.0-47.0); HEMOGLOBIN 9.9 G/DL (12.0-16.0); LYMPHOCYTES % (AUTO) 17.6 % (20.0-45.0); MEAN CORPUSCULAR VOLUME 90 FL (80-99); MONOCYTES % (AUTO) 10.7 % (1.0-10.0); NEUTROPHILS % (AUTO) 66.2 % (45.0-75.0); PLATELET COUNT 185 K/UL (150-450); RED BLOOD COUNT 3.45 M/UL (4.20-5.40); RED CELL DISTRIBUTION WIDTH 12.3 % (11.6-14.8)
--- NOTE | 2018-09-06 06:58 | NUR ---
NURSE NOTES: Basil hose to left leg changed due to soiled. Applied new basil hose on left leg. No c/o pain at this time. Pt tolerated procedure well.
[2018-09-06] MEDS: Wixela 100/50 Inhaler - 60 dose INH SCH ×2 (07:19→19:19)
--- NOTE | 2018-09-06 07:36 | NUR ---
NURSE NOTES: Pt is awake Dr here to see pt. Gave instructions for possible discharge to [facility]. Pt will be able to shower in 3-4 days and bandage to be changed every other day
--- NOTE | 2018-09-06 07:36 | Orthopedic Progress Note ---
Orthopedic - Progress Note Subjective Symptoms: c/o post-op knee pain Additional Comments Was up and about yesterday with a walker. Walked to the bathroom. Objective Last 24 Hour Vital Signs Date Time Temp Pulse Resp B/P (MAP) Pulse Ox O2 Delivery O2 Flow Rate FiO2 09/06/18 07:19 118 18 96 Nasal Cannula 3.0 32 09/06/18 07:19 96 Nasal Cannula 3.0 32 09/06/18 07:19 101 18 96 Nasal Cannula 3.0 32 09/06/18 04:00 98.5 93 19 127/63 (84) 97 09/06/18 00:00 97.2 98 18 107/59 (75) 99 09/05/18 21:00 Nasal Cannula 2.0 09/05/18 20:00 97.8 107 18 112/72 (85) 98 09/05/18 19:04 118 18 95 Nasal Cannula 3.0 32 09/05/18 19:04 118 18 95 Nasal Cannula 3.0 32 09/05/18 19:04 95 Room Air 3.0 32 09/05/18 16:10 96 16 98 09/05/18 16:00 98.1 98 104/68 (80) 09/05/18 12:00 97.8 96 16 98/67 (77) 09/05/18 09:38 97 18 98 Nasal Cannula 3.0 32 09/05/18 09:37 97 18 97 Nasal Cannula 3.0 32 09/05/18 09:37 97 Nasal Cannula 3.0 32 09/05/18 09:00 Nasal Cannula 2.0 09/05/18 08:34 123/92 09/05/18 08:00 97.9 97 16 123/92 (102) 98 Intake and Output 09/05/18 09/06/18 19:00 07:00 Intake Total 613 ml Balance 613 ml Intake Oral 238 ml IV Total 375 ml # Voids 2 # Bowel Movements 1 Laboratory Tests Test 09/06/18 05:10 White Blood Count 5.0 K/UL (4.8-10.8) Red Blood Count 3.45 M/UL (4.20-5.40) L Hemoglobin 9.9 G/DL (12.0-16.0) L Hematocrit 31.1 % (37.0-47.0) L Mean Corpuscular Volume 90 FL (80-99) Mean Corpuscular Hemoglobin 28.8 PG (27.0-31.0) Mean Corpuscular Hemoglobin Concent 32.0 G/DL (32.0-36.0) Red Cell Distribution Width 12.3 % (11.6-14.8) Platelet Count 185 K/UL (150-450) Mean Platelet Volume 5.8 FL (6.5-10.1) L Neutrophils (%) (Auto) 66.2 % (45.0-75.0) Lymphocytes (%) (Auto) 17.6 % (20.0-45.0) L Monocytes (%) (Auto) 10.7 % (1.0-10.0) H Eosinophils (%) (Auto) 5.0 % (0.0-3.0) H Basophils (%) (Auto) 0.5 % (0.0-2.0) Wound: clean, dry Drains: none Neuro Status: abnormal Vascular Status: normal Assessment Post-op Diagnosis S/p TKA POD 2 Plan Plan: PT, pain management, discharge plan Additional Comments Plan on Discharge to home vs Acute rehab ([facility]) Erickson Tabor MD Sep 06, 2018 07:36
[2018-09-06 08:00] VITALS: BP 129/63
[2018-09-06] MEDS: Docusate 100mg cap ORAL SCH ×3 (09:00→18:00)
[2018-09-06] MEDS: TOVIAZ 8 MG ORAL SCH (09:12)
[2018-09-06] MEDS: Benazepril 10mg tab ORAL SCH (09:12)
[2018-09-06] MEDS: celeBREX 200mg Cap **SURGERY PATIENTS ONLY ORAL SCH (09:13)
[2018-09-06] MEDS: HYDROcodone/Acetamin 5/325 tab ORAL PRN ×3 (11:09→23:37)
--- NOTE | 2018-09-06 11:27 | NUR ---
NURSE NOTES: Per report of outgoing nurse dressing was changed
[2018-09-06 12:00] VITALS: BP 112/52
[2018-09-06 16:00] VITALS: BP 114/70
--- NOTE | 2018-09-06 17:57 | NUR ---
NURSE NOTES: assisted pt to restroom refused placement of scd at this time. Pain medication offered pain level 3 states that is a comfortable level for her. Pt emotional due to current situation non related to pain
--- NOTE | 2018-09-06 19:30 | NUR ---
NURSE NOTES: Awake, alert and oriented x 4. Denies any pain at this time. Surgical dressing with stain, C/D/I. Assisted pt OOB ambulated with walker to the restroom, gait steady, no distress noted. Pt voided without difficulty, safely back in bed. Denies any pain. Bed in lowest position and locked, side rails up x 2, call lght within reach. Will continue to monitor.
--- NOTE | 2018-09-06 19:43 | NUR ---
NURSE NOTES: Oncoming made aware, that pt had several emotional episodes of crying, ... Given assistance to the restroom 5x . Did have an incontinent episode. Required education to keep basil velarde on pt seen attempting to role it down. Required education on purpose of scd. Pt fearful to move leg . Oncoming nurse made aware that dressing has a small amount of blood. Pt refused , insulin believing it is causing her to have loose stool. Iron and stool softener refused. Benefits of iron explained.Indecisive, about pt teaching. Current plan of care will be followed . Refused pillow under feet. Ate minimal for all meals. Call light in reach , bed is in safe position
[2018-09-06 20:00] VITALS: BP 137/72
[2018-09-07] VITALS: BP 136/71
[2018-09-07 04:00] VITALS: BP 135/67
[2018-09-07] MEDS: metFORMIN 500mg tab ORAL SCH ×3 (05:53→17:17)
--- NOTE | 2018-09-07 06:00 | NUR ---
NURSE NOTES: Dressing change done to surgical site. Applied 4x4 gauze and tegaderm, clean, dry and intact.
[2018-09-07] MEDS: NovoLOG Insulin Flexpen SUBQ SCH ×3 (06:02→17:18)
[2018-09-07 06:27] LABS: BASOPHILS % (AUTO) 0.5 % (0.0-2.0); HEMATOCRIT 29.5 % (37.0-47.0); HEMOGLOBIN 9.4 G/DL (12.0-16.0); LYMPHOCYTES % (AUTO) 14.1 % (20.0-45.0); MEAN CORPUSCULAR VOLUME 89 FL (80-99); MONOCYTES % (AUTO) 8.8 % (1.0-10.0); NEUTROPHILS % (AUTO) 71.6 % (45.0-75.0); PLATELET COUNT 189 K/UL (150-450); RED CELL DISTRIBUTION WIDTH 12.4 % (11.6-14.8); WHITE BLOOD COUNT 5.6 K/UL (4.8-10.8)
--- NOTE | 2018-09-07 07:22 | NUR ---
HAND-OFF: Report given to DIANE Benjamin. Pt in stable condition.
--- NOTE | 2018-09-07 07:30 | NUR ---
NURSE NOTES: Received report from Gordon Huber RN. Rounding done with outgoing nurse. Patient a/o x4 lying on the bed. Left knee surgical site dressing is dry and intact. Denies any pain at this time. Bed in lowest position, call light within reach. Will continue to monitor.
[2018-09-07 08:00] VITALS: BP 138/68
--- NOTE | 2018-09-07 08:16 | Orthopedic Progress Note ---
Orthopedic - Progress Note Subjective Symptoms: improved Objective Laboratory Tests Test 09/07/18 05:20 White Blood Count 5.6 K/UL (4.8-10.8) Red Blood Count 3.30 M/UL (4.20-5.40) L Hemoglobin 9.4 G/DL (12.0-16.0) L Hematocrit 29.5 % (37.0-47.0) L Mean Corpuscular Volume 89 FL (80-99) Mean Corpuscular Hemoglobin 28.5 PG (27.0-31.0) Mean Corpuscular Hemoglobin Concent 31.9 G/DL (32.0-36.0) L Red Cell Distribution Width 12.4 % (11.6-14.8) Platelet Count 189 K/UL (150-450) Mean Platelet Volume 6.1 FL (6.5-10.1) L Neutrophils (%) (Auto) 71.6 % (45.0-75.0) Lymphocytes (%) (Auto) 14.1 % (20.0-45.0) L Monocytes (%) (Auto) 8.8 % (1.0-10.0) Eosinophils (%) (Auto) 5.0 % (0.0-3.0) H Basophils (%) (Auto) 0.5 % (0.0-2.0) Last 24 Hour Vital Signs Date Time Temp Pulse Resp B/P (MAP) Pulse Ox O2 Delivery O2 Flow Rate FiO2 09/07/18 07:36 98 Room Air 21 09/07/18 04:00 99.1 105 18 135/67 (89) 97 09/07/18 00:00 98.6 106 18 136/71 (92) 97 09/06/18 21:00 Room Air 09/06/18 20:00 98.8 107 20 137/72 (93) 98 09/06/18 19:22 102 18 98 Room Air 09/06/18 19:21 98 Room Air 09/06/18 19:21 102 18 98 Room Air 09/06/18 16:00 98.0 86 18 114/70 (85) 98 09/06/18 12:00 97.8 100 18 112/52 (72) 09/06/18 09:12 129/63 09/06/18 09:00 Nasal Cannula 2.0 Intake and Output 09/06/18 09/07/18 19:00 07:00 Intake Total 400 ml Balance 400 ml Intake Oral 400 ml # Voids 5 8 Laboratory Tests Test 09/07/18 05:20 White Blood Count 5.6 K/UL (4.8-10.8) Red Blood Count 3.30 M/UL (4.20-5.40) L Hemoglobin 9.4 G/DL (12.0-16.0) L Hematocrit 29.5 % (37.0-47.0) L Mean Corpuscular Volume 89 FL (80-99) Mean Corpuscular Hemoglobin 28.5 PG (27.0-31.0) Mean Corpuscular Hemoglobin Concent 31.9 G/DL (32.0-36.0) L Red Cell Distribution Width 12.4 % (11.6-14.8) Platelet Count 189 K/UL (150-450) Mean Platelet Volume 6.1 FL (6.5-10.1) L Neutrophils (%) (Auto) 71.6 % (45.0-75.0) Lymphocytes (%) (Auto) 14.1 % (20.0-45.0) L Monocytes (%) (Auto) 8.8 % (1.0-10.0) Eosinophils (%) (Auto) 5.0 % (0.0-3.0) H Basophils (%) (Auto) 0.5 % (0.0-2.0) Wound: clean, dry, intact Drains: none Neuro Status: normal Vascular Status: normal Assessment Post-op Diagnosis POD 3 Procedure Performed left total knee arthroplasty Plan Plan: discharge plan - to rehab today. f/u Dr Tabor next week. continue ASA for dvt ppx Marquita Ware Sep 07, 2018 08:16
--- NOTE | 2018-09-07 08:17 | Discharge Summary ---
Discharge Summary Hospital Course Date of Admission Sep 04, 2018 at 05:42 Date of Discharge 09/07/18 Admitting Diagnosis left knee arthritis Reason for Hospitalization: s/p left total knee arthroplasty HPI Katharina Islas is a 73 year old female who was admitted on Sep 04, 2018 at 05:42 for Traumatic Arthropathy, Left Knee Consultations MD Tello Procedures left tka Hospital Course benign Discharge Condition Upon Discharge: improving, stable Discharge Disposition Patient was discharged to rehab. f/u Dr torre next week Marquita Ware Sep 07, 2018 08:17
[2018-09-07] MEDS: Benazepril 10mg tab ORAL SCH (08:58)
[2018-09-07] MEDS: celeBREX 200mg Cap **SURGERY PATIENTS ONLY ORAL SCH (08:59)
[2018-09-07] MEDS: Docusate 100mg cap ORAL SCH ×3 (08:59→17:18)
[2018-09-07] MEDS: Wixela 100/50 Inhaler - 60 dose INH SCH ×2 (09:21→19:58)
[2018-09-07] MEDS: TOVIAZ 8 MG ORAL SCH (09:33)
--- NOTE | 2018-09-07 10:14 | NUR ---
DISCHARGE PLAN PATIENT WAS REFERRED TO [facility]. SHE AGREED TO [facility] BUT NOT GYPSY LUO FROM [facility] NOTIFIED DR TAYLOR WHO SAID PAVSUSHIL WAS OK WITH HIM PATIENT WILL DISCHARGE TO [facility] [address] SKILLED T: [phone] FOR NURSE TO NURSE REPORT [facility] HAS BEEN ARRANGED FOR [address] [employer] [employer]RAZER
[2018-09-07] MEDS: HYDROcodone/Acetamin 5/325 tab ORAL PRN ×2 (10:44→20:04)
--- NOTE | 2018-09-07 11:20 | NUR ---
NURSE NOTES: Called Dr. Javed and reconcile d/c meds. Dr. Javed ordered continue [facility] meds. Noted and carried out.
[2018-09-07 12:00] VITALS: BP 132/67
[2018-09-07] MEDS ORDERED: ACETAMINOPHEN325 M1 ORAL (13:28)
[2018-09-07] MEDS ORDERED: LOTENSIN20 MG ORAL (13:28)
[2018-09-07] MEDS ORDERED: CELEBREX200 MG ORAL (13:29)
[2018-09-07] MEDS ORDERED: COLACE100 MG ORAL (13:48)
[2018-09-07] MEDS ORDERED: FERROUS SULFAT325 MG ORAL (13:48)
[2018-09-07] MEDS ORDERED: NORCO 5-325 TA1 EACH ORAL (13:49)
[2018-09-07] MEDS ORDERED: SYNTHROID88 MCG ORAL (13:50)
[2018-09-07] MEDS ORDERED: METFORMIN HCL500 M1 ORAL (13:50)
[2018-09-07] MEDS ORDERED: MILK OF MA400 MG/51 ORAL (13:54)
[2018-09-07] MEDS ORDERED: PANTOPRAZOLE SO40 MG ORAL (13:55)
--- NOTE | 2018-09-07 14:00 | NUR ---
PT NOTE Attempted to see patient for PT treatment. Patient declining to participate at this time, c/o feeling groggy after taking pain medication. Patient scheduled to transfer to [facility] later today.
--- NOTE | 2018-09-07 14:16 | NUR ---
DISCHARGE PLAN DISCHARGE PLAN CHANGED PATIENT WILL NOW DISCHARGE TO [facility] [address] [facility] [address] ACCEPTING PHYSICIAN IS ~ DR MATTHEWS T: [phone] FOR NURSE TO NURSE REPORT [facility] HAS BEEN ARRANGED FOR [address]CH (PER CRI'S REQUEST)
--- NOTE | 2018-09-07 15:33 | General Progress Note ---
Assessment/Plan Problem List: (1) GERD (gastroesophageal reflux disease) ICD Codes: K21.9 - Gastro-esophageal reflux disease without esophagitis SNOMED: 900393217 (2) Diabetes ICD Codes: E11.9 - Type 2 diabetes mellitus without complications SNOMED: 36883243 (3) Arthritis of left knee ICD Codes: M17.12 - Unilateral primary osteoarthritis, left knee SNOMED: 007496135 (4) Hypertension ICD Codes: I10 - Essential (primary) hypertension SNOMED: 26794194 Status Narrative Blood pressure is controlled Assessment/Plan: Pain medications Physical therapy Same BP meds Discharge to rehab today Subjective Allergies: Coded Allergies: No Known Allergies (Unverified , 09/04/18) Subjective No complaints Objective Last 24 Hour Vital Signs Date Time Temp Pulse Resp B/P (MAP) Pulse Ox O2 Delivery O2 Flow Rate FiO2 09/07/18 12:00 98.5 107 18 132/67 (88) 97 09/07/18 09:22 93 18 98 Room Air 09/07/18 09:22 97 18 98 Room Air 21 09/07/18 09:00 Room Air 09/07/18 08:58 138/68 09/07/18 08:00 98.4 108 18 138/68 (91) 99 09/07/18 07:36 98 Room Air 09/07/18 04:00 99.1 105 18 135/67 (89) 97 09/07/18 00:00 98.6 106 18 136/71 (92) 97 09/06/18 21:00 Room Air 09/06/18 20:00 98.8 107 20 137/72 (93) 98 09/06/18 19:22 102 18 98 Room Air 09/06/18 19:21 98 Room Air 09/06/18 19:21 102 18 98 Room Air 09/06/18 16:00 98.0 86 18 114/70 (85) 98 Intake and Output 09/06/18 09/07/18 19:00 07:00 Intake Total 400 ml Balance 400 ml Intake Oral 400 ml # Voids 5 8 Laboratory Tests 09/07/18 05:20: White Blood Count 5.6, Red Blood Count 3.30L, Hemoglobin 9.4L, Hematocrit 29.5L , Mean Corpuscular Volume 89, Mean Corpuscular Hemoglobin 28.5, Mean Corpuscular Hemoglobin Concent 31.9L, Red Cell Distribution Width 12.4, Platelet Count 189, Mean Platelet Volume 6.1L, Neutrophils (%) (Auto) 71.6, Lymphocytes (%) (Auto) 14.1L, Monocytes (%) (Auto) 8.8, Eosinophils (%) (Auto) 5.0H, Basophils (%) (Auto) 0.5 Height (Feet): 5 Height (Inches): 4.00 Weight (Pounds): 244 Cardiovascular: normal rate Respiratory/Chest: lungs clear Edema: 2+ Generalized - Left lower extremity Noe Canales MD Sep 07, 2018 15:33
[2018-09-07 16:00] VITALS: BP 99/57
--- NOTE | 2018-09-07 17:05 | NUR ---
NURSE NOTES: Report was given to DIANE Morfin at [facility].
--- NOTE | 2018-09-07 19:36 | NUR ---
HAND-OFF: Report given to DIANE Fontenot. Patient is stable.
--- NOTE | 2018-09-07 19:45 | NUR ---
NURSE NOTES: Pt lying in bed w/bed in lowest position and call light within reach. Pt A&Ox4, VSS, and in no apparent distress at this time. No IV access; pt scheduled to be discharged this PM. Per morning shift RN, discharge done and report given to accepting facility; waiting for ambulance to arrive. Will continue to monitor.
[2018-09-07 20:00] VITALS: BP 110/65
--- NOTE | 2018-09-07 20:15 | NUR ---
NURSE NOTES: Pt discharged via ambulance w/all belongings and medications accounted for. Notified Pardeep, [employer] at the rehab, that pt is tachy and he stated that it was OK.
== END 2018-09-07 20:15 | disposition short-term general hospital (02) | DRG 470 ==
LOC: SDSOVERFLO 05:42 → 3E 11:57
PROC: 0SRD0J9 Replacement of Left Knee Joint with Synthetic Substitute, Cemented, Open Approach (ICD-10-PCS; principal; 2018-09-04 08:30)
DX: M17.12 Unilateral primary osteoarthritis, left knee (principal); Z68.41 Body mass index [BMI] 40.0-44.9, adult; E66.01 Morbid (severe) obesity due to excess calories; M21.062 Valgus deformity, not elsewhere classified, left knee; E11.9 Type 2 diabetes mellitus without complications; E78.5 Hyperlipidemia, unspecified; K21.9 Gastro-esophageal reflux disease without esophagitis; D50.0 Iron deficiency anemia secondary to blood loss (chronic)
CPT/HCPCS: 36415; 80048; 82962; 85025; 86850; 86900; 86901; 87081; 94003; 94150; 94640; J1815; J2250; J2405